=== PATIENT | male | born 1955 | race Two or more races ===

== ENCOUNTER → 2017-07-07 | Outpatient (CLI) | payer OTHER ==
[~2017-07-07] VITALS: Ht 175.3 cm; Wt 93.8 kg
[~2017-07-07] MED LIST: AMLO-511 PO; ASPI81 PO; CHOL200016 PO; DOCU250C91 PO; DULO30CA2 PO; INSLAN SQ; INSU500I SQ; KDUR10 PO; LIDOCAINE HCL 2% 5 ML JELLY TP ONE; LISI-661 PO; METF500T4 PO; METO25 PO; NITR.4 SL; OMEP20 PO; PRAV40TA4 PO
[2017-07-07 09:39] VITALS: BP 126/65
[2017-07-07 11:12] LABS: GLUCOMETER DEV NAME(LOC) HBW; GLUCOSE,POINT OF CARE 204 MG/DL (70-110)
== END | disposition home or self-care (01) ==
LOC: HBOWC 09:16
PROVIDERS: ATTEND Emergency Medicine
DX: E11.621 Type 2 diabetes mellitus with foot ulcer (principal); L97.521 Non-pressure chronic ulcer of other part of left foot limited to breakdown of skin; E11.42 Type 2 diabetes mellitus with diabetic polyneuropathy; E11.610 Type 2 diabetes mellitus with diabetic neuropathic arthropathy; E66.9 Obesity, unspecified; I10 Essential (primary) hypertension
CPT/HCPCS: 11042; 82962; G0463

== ENCOUNTER → 2017-07-14 | Outpatient (CLI) | payer OTHER ==
[~2017-07-14] MED LIST changes: -LIDOCAINE HCL 2% 5 ML JELLY TP ONE
[2017-07-14 09:54] VITALS: BP 130/57
== END | disposition home or self-care (01) ==
LOC: HBOWC 09:37
PROVIDERS: ATTEND Emergency Medicine
DX: E11.621 Type 2 diabetes mellitus with foot ulcer (principal); L97.521 Non-pressure chronic ulcer of other part of left foot limited to breakdown of skin; E11.610 Type 2 diabetes mellitus with diabetic neuropathic arthropathy; E11.42 Type 2 diabetes mellitus with diabetic polyneuropathy; I10 Essential (primary) hypertension; E66.9 Obesity, unspecified
CPT/HCPCS: 11042